=== PATIENT | male | born 1940 | race Caucasian/White ===

== ENCOUNTER 2024-03-21 10:41 | Emergency (ER) | payer OTHER, SELFPAY ==
[2024-03-21] VITALS (13 sets, daily range): BP systolic 137–189; BP diastolic 82–100; BMI 22.6
--- NOTE | 2024-03-21 12:53 | ED.GENMED ---
History of Present Illness
<Elisabeth Quezada PA-C - Last Filed: 03/21/24 13:49>
General
Chief Complaint: Dizziness
Source: patient and family
Exam Limitations: none
Time Seen by Provider: 03/21/24 12:19
Nursing documentation reviewed up to this point in time: agreed with
History of Present Illness
History of Present Illness:
PT IS A 83 Y/O M
h/o prostate ca remotely, prostatectomy, more recently radiation for recurrence last year
otherwise healthy
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
changing position
no headche
he took motrin at 11 am just thinking it would help 'inflammation' but never had any pain
he was able to sit in his chair and was feeling ok if he didn't move around too much
then again last nght he had some dizziness and noticed his vision was blurred and he was seeing piece of his vision move. like the numberson the clock were moving but nothing else was
no diplopia
he hs had some intermittent neck discomfort with flexion over a year without any work up
never got dizzy before
no recent illness
denies cp, sob, vision loss, pareshtesias, weakness, syncope, vomiting
he has felt nauseated but never vomited
Past History
<Elisabeth Quezada PA-C - Last Filed: 03/21/24 13:49>
Past History
ED Past Medical History: Cancer
ED Past Surgical History: Urological
Social History
Tobacco: Non-smoker
Alcohol: None
Review of Systems
<Elisabeth Quezada PA-C - Last Filed: 03/21/24 13:49>
Review of Systems
Allergies reviewed?: Yes
All Other Systems: Not applicable
Phy Exam
<Elisabeth Quezada PA-C - Last Filed: 03/21/24 13:49>
Physical Exam
Physical Exam:
GENERAL: Alert , in no apparent distress
HEAD: NCAT
EYE: pupils equal and reactive, no nystagmus, no photophobia,
NECK: Supple,full rom, nontender full ROM
ENT: o/p clr, mmm.
CARDIAC: Regular rate and rhythm . no edema
LUNGS: Clear breath sounds bilaterally, no acute respiratory distress, no wheezes/rales/rhonchi
ABDOMEN: Soft, without focal tenderness, no r/g, no cvat
NEUROLOGICAL: Alert and orientedx 4, cn intact, no facial asymmetry, 5/5 strength in UE/LE, sensation intact, romberg neg, neg pronator drift
SKIN: Warm and dry, skin intact.
MUSCULOSKELETAL: No edema, well perfused.
PSYCH: Normal and appropriate interaction.
paola hallpike: VERY POSITIVE HORIZONTAL NYSTAGMUS
Course
<Elisabeth Quezada PA-C - Last Filed: 03/21/24 13:49>
Orders/Labs/Results
Orders:
Orders
03/21/24 10:47
EKG [Electrocardiogram (*1)] Urgent
Reason for Study: Vertigo / Dizzy
03/21/24 10:48
EKG- Treatment ONCE
03/21/24 12:53
Meclizine [Antivert] 25 mg PO NOW STA
03/21/24 12:54
Electrocardiogram (*1) Urgent
Reason for Study: Vertigo / Dizzy
03/21/24 12:57
CT Head & Neck Angio W/wo IV Urgent
Comment:
Reason For Exam: DIZZINESS, VERTIGO
03/21/24 13:19
COVID-19 Antigen Urgent
Source: Nasal Swab
Complete Blood Count/With Diff Urgent
Comprehensive Metabolic Panel Urgent
Magnesium Urgent
03/21/24 Dinner
Regular
At Your Request: Full Participation
Does patient need a safe tray?: No
03/21/24 15:47
NEUROLOGY CONSULT Routine
Consulting Provider: Zackery Jaimes
Was physician already notified: Yes
03/21/24 16:43
CRP [C-Reactive Protein] Routine
Comment: May add to blood in lab
Erythrocyte Sed Rate Routine
Comment: may add to blood in lab
Folate Routine
Comment: May add to blood in lab
TSH Reflex To Free T4 Routine
Comment: May add to blood in lab
Vitamin B12 Routine
Comment: May add to blood in lab or draw as routine
Abnormal Lab Results
03/21/24 03/21/24
13:19 16:43
RBC 4.08 L 10^6/uL
(4.70-6.10)
Hgb 12.6 L g/dL
(13.0-18.0)
Hct 37.8 L %
(39.0-52.0)
MPV 10.8 H fL
(7.4-10.4)
Absolute Lymphs (auto) 0.5 L 10^3/uL
(1.2-3.4)
Neutrophils % 84.9 H %
(42.2-75.2)
Lymphocytes % 6.1 L %
(20.5-51.1)
Glucose 106 H mg/dl
(70-99)
Folate > 20.0 H ng/ml
(2.76-20)
03/21/24 13:19
03/21/24 13:19
Vital Signs
Initial and Last Documented VS:
Initial Vital Signs
Temp Pulse Resp BP Pulse Ox
36.9 C 75 16 137/82 97
03/21/24 10:45 03/21/24 10:45 03/21/24 10:45 03/21/24 10:45 03/21/24 10:45
Last Documented Vital Signs
Temp Pulse Resp BP Pulse Ox
36.9 C 60 16 189/87 98
03/21/24 10:45 03/21/24 18:00 03/21/24 18:00 03/21/24 18:00 03/21/24 18:00
<Bari Arrieta MD - Last Filed: 03/21/24 18:40>
Orders/Labs/Results
Orders:
Orders
03/21/24 10:47
EKG [Electrocardiogram (*1)] Urgent
Reason for Study: Vertigo / Dizzy
03/21/24 10:48
EKG- Treatment ONCE
03/21/24 12:53
Meclizine [Antivert] 25 mg PO NOW STA
03/21/24 12:54
Electrocardiogram (*1) Urgent
Reason for Study: Vertigo / Dizzy
03/21/24 12:57
CT Head & Neck Angio W/wo IV Urgent
Comment:
Reason For Exam: DIZZINESS, VERTIGO
03/21/24 13:19
COVID-19 Antigen Urgent
Source: Nasal Swab
Complete Blood Count/With Diff Urgent
Comprehensive Metabolic Panel Urgent
Magnesium Urgent
03/21/24 Dinner
Regular
At Your Request: Full Participation
Does patient need a safe tray?: No
03/21/24 15:47
NEUROLOGY CONSULT Routine
Consulting Provider: Zackery Jaimes
Was physician already notified: Yes
03/21/24 16:43
CRP [C-Reactive Protein] Routine
Comment: May add to blood in lab
Erythrocyte Sed Rate Routine
Comment: may add to blood in lab
Folate Routine
Comment: May add to blood in lab
TSH Reflex To Free T4 Routine
Comment: May add to blood in lab
Vitamin B12 Routine
Comment: May add to blood in lab or draw as routine
Abnormal Lab Results
03/21/24 03/21/24
13:19 16:43
RBC 4.08 L 10^6/uL
(4.70-6.10)
Hgb 12.6 L g/dL
(13.0-18.0)
Hct 37.8 L %
(39.0-52.0)
MPV 10.8 H fL
(7.4-10.4)
Absolute Lymphs (auto) 0.5 L 10^3/uL
(1.2-3.4)
Neutrophils % 84.9 H %
(42.2-75.2)
Lymphocytes % 6.1 L %
(20.5-51.1)
Glucose 106 H mg/dl
(70-99)
Folate > 20.0 H ng/ml
(2.76-20)
03/21/24 13:19
03/21/24 13:19
Vital Signs
Initial and Last Documented VS:
Initial Vital Signs
Temp Pulse Resp BP Pulse Ox
36.9 C 75 16 137/82 97
03/21/24 10:45 03/21/24 10:45 03/21/24 10:45 03/21/24 10:45 03/21/24 10:45
Last Documented Vital Signs
Temp Pulse Resp BP Pulse Ox
36.9 C 60 16 189/87 98
03/21/24 10:45 03/21/24 18:00 03/21/24 18:00 03/21/24 18:00 03/21/24 18:00
<Elisabeth Quezada PA-C - Last Filed: 03/21/24 13:49>
MDM/Problems Addressed
Differential Diagnosis Includes:
vertigo, stroke, dissection
MDM/Problems Addressed:
pt is a 83 y/o M
prostate CA treated
here with room spinning dizziness since yesterday
feels a little better today
nauea vut no vomiting
positional with turning head and worse with walking
no other associated neuro sxs
on exam pt seeated comfortably
no distress
neuro intact
he had a significantly positive paola hallpike head turned to left with horizontal nystagmus unclear which fast beat direction
he became very symptomatmic with that
seems fairly c/w BPPV
d/w ed attending
will check labs and cta given his age
meclizine
reassess
ED Attending Note
<Elisabeth Quezada PA-C - Last Filed: 03/21/24 13:49>
-
Portions of this chart may have been created with voice recognition software.� Occasional wrong word or��sound alike� substitutions may have occurred due to the inherent limitations of voice recognition software.
<Bari Arrieta MD - Last Filed: 03/21/24 18:40>
ED Attending Note
Patient seen and examined by attending physician: Yes
ED Attending Note:
I have seen and evaluated the patient with a [id number] encounter. I have spoken to the advance practicer provider and involved in the medical history, the physical exam, medical decision making.
Evaluation and management service: agree unless noted differently below.
Results interpretation: agree unless noted differently below.
Focused HPI: 83-year-old male with history as documented notable for prostate cancer status post prostatectomy and radiation who presents to the ER with his family for evaluation of dizziness. Patient reports symptoms started yesterday morning when
he woke up and they have been constant since that time. He reports dizziness much worse with any movement. Somewhat better when he sits still. He reports some slight blurriness of his vision when he stares at set point. He denies any vision
loss. Denies any speech issues. Denies any weakness or numbness in his extremities. He denies any other complaints. Denies similar symptoms in the past.
Physical exam: Awake alert sitting up in bed completely still. Hypertensive but otherwise normal vitals. He does have positive Beaumont-Hallpike with leftward nystagmus; per PA also had rotary nystagmus earlier. Otherwise nonfocal neurologic exam.
Medical Decision Makin-year-old male presents with new onset vertigo. Hypertensive otherwise normal vitals, exam as above. With new onset vertigo and an 81+-year-old with hypertension concern for possible stroke. Labs were sent off including
a CBC and a CMP which were unremarkable. CTA head and neck negative for any acute pathology. EKG shows sinus rhythm. He was treated with meclizine he did have some improvement but not resolution of his symptoms. Discussed with neurology for
consultation. Discussed with hospitalist for admission.
UPDATE
After initial admission patient was seen by neurology as well as by the hospitalist. Neurology feels quite strongly that this is peripheral vertigo rather than stroke. I tend to agree that history and exam are more consistent with peripheral
vertigo but my concerns were more about his advanced age and risk factors without prior history. Neurology feels that MRI is not necessary at this point to be treated as outpatient. Hospitalist did consult and agree; although he has been
hypertensive can follow-up with his primary doctor outpatient had a long discussion with patient and family and they feel comfortable with outpatient management of this issue he is feeling much better symptoms essentially have resolved.. Shared
decision making with patient and care team as above will discharge.
Discharge Plan
Departure
Patient Disposition: Home (Routine Discharge)
Date of Disposition: 03/21/24
Time of Disposition: 15:52
Patient with high blood pressure during this ER visit?: Yes
Discharge Problem:
Vertigo
Instructions: Vertigo (a type of dizziness)
Prescriptions:
New
meclizine 25 mg tablet
25 mg PO BID PRN (Reason: dizziness) Qty: 20 0RF
No Action
calcium carbonate [Calcium 500] 500 mg calcium (1,250 mg) Tablet
500 mg PO DAILY
ibuprofen [Advil] 200 mg Tablet
200 mg PO DAILYPRN PRN (Reason: mild pain)
red yeast rice 600 mg Capsule
600 mg PO DAILY
cholecalciferol (vitamin D3) [Vitamin D3] 25 mcg (1,000 unit) Tablet
25 mcg PO DAILY
Visbiome 112.5 billion cell Capsule
1 cap PO DAILY
omega 9-sbx-fyu-fish oil [Fish Oil] 1,000 (120-180) mg Capsule
1 cap PO DAILY
coQ10 (ubiquinol) 100 mg Capsule
100 mg PO DAILY
Referrals:
Oswaldo Lofton MD [Family Provider] -
Bari Donovan MD [Active] - Call in 1-3 days for appt
Activity Restrictions/Additional Instructions:
Thank you for visiting the Emergency Department at [facility].
1. Please schedule a follow up appointment as directed. Call first thing tomorrow morning to make an appointment.
2. If indicated, please take your medications as instructed and indicated on discharge paperwork.
3. If any of your symptoms do not improve, or persist, or become more severe within 6-12 hours, please return to the emergency department for further care.
4. Please return to the emergency department if you develop a headache, neck pain/stiffness, fever greater than 100.4F, chest pain, shortness of breath, persistent nausea, vomiting, slurred speech, difficulty walking, numbness/tingling, weakness,
signs of infection or any other symptoms that are worrisome to you.
Please call [phone] if you have any questions.
Interventions
Interventions:
*Risk Screen - Suicide Last Done: 03/21/24 10:45
*General Assessment Last Done: 03/21/24 10:45
ED- Fall Risk Assessment Last Done: 03/21/24 11:31
*ED COVID-19 Vaccine History Last Done: 03/21/24 10:45
ED- Neurological Assessment Last Done: 03/21/24 11:31
ED- Cardiac Assessment Last Done: 03/21/24 11:31
ED Swallowing Screen Last Done: 03/21/24 11:31
Discharge Date and Time
Print Language: CHINESE
[2024-03-21] MEDS: ANTIVERT 25 MG PO (13:18)
[2024-03-21 13:32] LABS: Hematocrit 37.8 % (39.0-52.0); Hemoglobin 12.6 g/dL (13.0-18.0); Mean Corp Hgb Conc. 33.3 g/dL (33.0-37.0); Mean Corpuscular Hgb 30.9 pg (27.0-31.0); Mean Corpuscular Volume 92.6 fL (80.0-94.0); Red Blood Cell Count 4.08 10^6/uL (4.70-6.10); Red Cell Dist. Width 13.2 % (11.5-14.5); White Blood Cell Count 7.4 10^3/uL (4.8-10.8)
[2024-03-21 13:33] LABS: % Basophils 0.4 % (0-2); % Eosinophils 0.7 % (0-6); % Immature Granulocytes 0.5 % (0-0.5); % Lymphocytes 6.1 % (20.5-51.1); % Monocytes 7.4 % (1.7-9.3); % Neutrophils 84.9 % (42.2-75.2); Absolute Eosinophils 0.1 10^3/uL (0-0.7); Absolute Lymphocytes 0.5 10^3/uL (1.2-3.4); Absolute Monocytes 0.6 10^3/uL (0.1-0.6); Absolute Neutrophils 6.3 10^3/uL (1.4-6.5); Mean Platelet Volume 10.8 fL (7.4-10.4); Nucleated Red Blood Cells % 0 % (-); Platelet Count 164 10^3/uL (130-400)
[2024-03-21 13:49] LABS: ALT (SGPT) 16 U/L (0-50); AST (SGOT) 22 U/L (17-59); Alkaline Phosphatase 51 U/L (38-126); Blood Urea Nitrogen 17 mg/dl (9-20); Calcium 9.3 mg/dl (8.4-10.2); Carbon Dioxide 29 mmol/L (22-30); Chloride 106 mmol/L (98-107); Estimated Creatinine Clearance 62 ml/min; Glucose 106 mg/dl (70-99); Magnesium 2.3 mg/dl (1.6-2.3); Potassium 5.1 mmol/L (3.5-5.1); Sodium 139 mmol/L (135-145); Total Bilirubin 0.8 mg/dl (0.2-1.3); Total Protein 6.6 g/dl (6.3-8.2); eGFR > 60.00
[2024-03-21 13:50] LABS: COVID-19 Antigen Negative (Negative)
--- NOTE | 2024-03-21 15:53 | CON.NEURO ---
Neuro Assessment/Plan
Assessment
83-year-old with sudden onset vertigo and examination suggestive of horizontal nystagmus
Most likely secondary to benign paroxysmal positional vertigo in light of an absence of headache. Much less likely differential diagnosis would include ischemic stroke
Plan
Vestibular therapy
Would minimize the use of meclizine while the patient is receiving vestibular therapy
No clear indication patient would benefit from MRI imaging of the brain at this time
Check blood work for potential metabolic abnormalities producing minimal cognitive issues
No clear indication patient would benefit from the use of aspirin at this time
Will follow as needed
Consultation
Order
Date of Consultation: 03/21/24
Requesting Provider: Emergency department physician
Reason for Consult: Vertigo
Subjective/Objective
Subjective Data
Date of Service: March 21, 2024
Right-Handed
Patient began experiencing vertigo 1 day prior to presentation to this hospital's emergency department.
Started at 0200 with light-headedness, recurrent at 0630 upon awakening yesterday. Spinning sensation. Hearing changes none, tinnitus none.
Improved by 1800 yesterday.
Recurrent this morning at 0800, unable to ambulate, overall improved today compared with yesterday
No falling, equally unsteady.
No recent illness or medication changes/health.
No prior episodes.
No issues currently.
Head down worsened.
Objective Data
Vital Signs
Temp Pulse Resp BP Pulse Ox
36.9 C 59 13 186/93 99
03/21/24 10:45 03/21/24 15:00 03/21/24 15:00 03/21/24 15:00 03/21/24 15:00
Lab Results
03/21/24 13:19
03/21/24 13:19
Sodium 139 mmol/L (135-145) 03/21/24 13:19
Potassium 5.1 mmol/L (3.5-5.1) 03/21/24 13:19
BUN 17 mg/dl (9-20) 03/21/24 13:19
Glucose 106 mg/dl (70-99) H 03/21/24 13:19
Calcium 9.3 mg/dl (8.4-10.2) 03/21/24 13:19
Patient Allergies
lactose Allergy (Verified 03/21/24 10:47)
Unknown
latex Allergy (Verified 03/21/24 10:47)
Unknown
shellfish derived Allergy (Verified 03/21/24 10:47)
Unknown
shrimp Allergy (Verified 03/21/24 10:47)
Unknown
Review of Systems
-
History Source: Patient and Family
All other systems: Reviewed and negative
EENT: Negative Blurry Vision or Swallowing Difficulty
Respiratory: Negative Trouble Breathing
Cardiac: Negative Chest Pain
Abdomen/GI: Negative Incontinence of Stool
Genitourinary: Incontinence
Musculoskeletal: Negative Back Pain or Neck Pain
Neuro: Negative Dizzy or Headache
Physical Exam
-
General: No Apparent Distress and Appears Stated Age
Eyes: OU Absent Papilledema, Round OU, [place] Conjunctivae and No Ptosis
HEENT: Anicteric and Moist Mucous Membranes
Neck: Full Range of Motion
Respiratory: No Dyspnea
Cardiac: No JVD
GI: Non-distended
Skin: Unremarkable
Extremities: No Clubbing, No Cyanosis and No Edema
Psych: Intact Judgement/Insight
Extended Neurological Exam
Mood & Affect: Mood Unremarkable and Affect Unremarkable
Attention Span & Concentration: Awake, Alert, Interactive and Mild Difficulty with 2 Step Request
Memory: Able to Recall (Month and year), Reduced (For correct holiday order) and Vague (For correct timing of recent onset of symptoms)
Tremor: Hand Tremor Absent and Head Tremor Absent
Speech: Quality Unremarkable and Quantity Unremarkable
Cranial Nerve II: Left Eye: Pupillary Reactivity Unremarkable, Pupillary Size Unremarkable and Visual Pineda Intact
Cranial Nerve II: Right Eye: Pupillary Reactivity Unremarkable, Pupillary Size Unremarkable and Visual Pineda Intact
Cranial Nerves III, IV, : Extraocular Movement: Extraocular Movement Full in all Directions; Negative Nystagmus with Extreme Gaze to Left or Nystagmus with Extreme Gaze to Right
Cranial Nerve VII: Facial Symmetry: Normal Facial Symmetry
Cranial Nerve VIII: Hearing: Unremarkable Hearing to Normal Conversational Volume (To rubbing fingers bilaterally independently)
Cranial Nerves IX, X: Palate Movement: Palate Elevation Symmetric
Cranial Nerve XI: Shoulder Shrug: Unremarkable
Cranial Nerve XII: Tongue Protusion: Midline
Muscle Strength, Overall: Spontaneously Moves (All extremities)
Muscle Bulk & Tone: Bulk Unremarkable and Tone Unremarkable
Pronator Drift: No Drift in Upper Extremities
Deep Tendon Reflexes: Trace Throughout
Touch Sensation: Unremarkable
Coordination: [id number]-[id number] Testing Unremarkable
Babinski Sign: Absent Bilaterally
Data Reviewed
-
CT Head: Report Reviewed
Labs: Report Reviewed
Reviewed with: Physician, Physician Nurse Clinician, Patient and Family
Old Records: Summarized
Past History
Past History
ED Past Medical History: Cancer (Prostate)
ED Past Surgical History: Urological (TURP with radiation)
Social History
Tobacco: Non-smoker
Alcohol: None
Family History
Family History: Other (Reviewed and noncontributory)
[2024-03-21 17:09] LABS: Erythrocyte Sed Rate 18 mm/hour (0-20)
[2024-03-21 17:17] LABS: C-Reactive Protein < 5.00 mg/L (0.0-10.00)
--- NOTE | 2024-03-21 17:28 | W.PN.UPDATE ---
Update Note
Progress Note Update
This is an addendum to the H&P written by Em Dumont on 03/21/2024. Patient seen and examined independently with PA.
83-year-old male past medical history of prostate cancer status post prostatectomy and radiation presenting with vertigo, nausea particularly with changing position bending over. No focal neurological symptoms or chest pain or shortness of breath
or syncope.
Blood pressure 180s systolic.
Labs unremarkable.
CTA head and neck shows no acute abnormality.
Presentation consistent with BPPV. Patient was seen by neurology who recommends as needed meclizine and vestibular therapy. No MRI needed. Patient without symptoms at this time although blood pressure of 180s. Would recommend outpatient blood
pressure monitoring and follow-up with his primary care physician.
[2024-03-21 17:45] LABS: TSH Reflex To Free T4 4.24 uIU/ml (0.47-4.68)
[2024-03-21 18:21] LABS: Folate > 20.0 ng/ml (2.76-20); Vitamin B12 634 pg/ml (239-931)
== END 2024-03-21 18:46 | disposition home or self-care (01) ==
LOC: EMR 10:41
PROVIDERS: Physician Assistant; CONSULT PHYSICIAN Psychiatry & Neurology Neurology; EMERGENCY PHYSICIAN Emergency Medicine; FAMILY PHYSICIAN Internal Medicine; OTHER PHYSICIAN Hospitalist
DX: R42 Dizziness and giddiness (principal); R11.0 Nausea; Z11.52 Encounter for screening for COVID-19; Z85.46 Personal history of malignant neoplasm of prostate; Z92.3 Personal history of irradiation; Z90.79 Acquired absence of other genital organ(s); Z91.040 Latex allergy status; Z91.011 Allergy to milk products; Z91.013 Allergy to seafood
CPT/HCPCS: 99284; 70496; 70498; 80053; 82607; 82746; 83735; 84443; 85025; 85652; 86140; 87811; 93005; Q9967

== ENCOUNTER → 2024-12-01 15:02 | Outpatient (REF) | payer OTHER, SELFPAY | LOC: RAD 15:02 | PROVIDERS: ATTENDING PHYSICIAN Physician Assistant | DX: Z76.89 Persons encountering health services in other specified circumstances (principal); R42 Dizziness and giddiness; Z87.898 Personal history of other specified conditions; H53.9 Unspecified visual disturbance; M54.2 Cervicalgia | CPT/HCPCS: 93880 ==

== ENCOUNTER → 2024-12-16 14:16 | Outpatient (REF) | payer OTHER, SELFPAY | LOC: HWRAD 14:16 | PROVIDERS: ATTENDING PHYSICIAN Physician Assistant | DX: M54.2 Cervicalgia (principal) | CPT/HCPCS: 72052 ==